=== PATIENT | male | born 1960 | race Caucasian/White ===

== ENCOUNTER 2020-05-12 08:28 | Day surgery (SDC) | payer OTHER ==
[~2020-05-12] VITALS: Ht 175.3 cm; Wt 99.3 kg
[~2020-05-12 08:28] MED LIST: BUSPIRONE HCL10 MG PO; CIALIS2.5 MG; OMEPRAZOLE20 M1 PO; WELLBUTRIN SR100 MG PO
[2020-05-12] MEDS ORDERED: ADDERALL 10 MG10 MG PO (09:00)
--- NOTE | 2020-05-12 11:24 | NUR ---
05/12/20 [address] [place] RESPONDS TO VOICE ON ENTRY TO PACU. REORIENTED TO TIME AND SITUATION. DENIES PAIN OR NAUSEA. PASSING GAS
--- NOTE | 2020-05-13 07:32 | OR ---
[facility] [address] [place], [place] [address] Signed DATE OF OPERATION: 05/12/2020 SURGEON: Shikha Roach MD PREOPERATIVE DIAGNOSES: 1. Screening. 2. Paternal grandfather with colon cancer versus gastric cancer. 3. Negative colonoscopy 2009 (Dr. Osullivan). POSTOPERATIVE DIAGNOSES: 1. 4 mm polyp at 25 cm. 2. 5 mm polyp at 35 cm. 3. 3 mm polyp at base of cecum. 4. 4 mm polyp at 30 cm. 5. 3 mm polyp at 18 cm (rectum). 6. Minimal internal and external hemorrhoids. PROCEDURE: Colonoscopy with hot biopsy. ESTIMATED BLOOD LOSS: None. INDICATIONS: Jori is a 60-year-old gentleman, asked to see me for a followup colonoscopy. He had a negative colonoscopy back in [address] Osullivan. He was age 50 at that time. He is not sure if his paternal grandfather had colon cancer versus gastric cancer. No one else in the family seems to have colon cancer or polyps. He has no lower GI complaints. He reminded me that I helped his girlfriend with her colonoscopy just a few months prior to his office visit. Consequently, Jori and his girlfriend are quite familiar with this whole process including our bowel prep. In the office, I gave Jori and his girlfriend another pamphlet on colonoscopy. He understands the nature of the test along with its risks including, but not limited to gas bloating, crampy abdominal pain, bleeding, perforation requiring surgery, and missed diagnosis. We also reviewed the written instructions for bowel prep line by line. We also reviewed the need for IV conscious sedation. He had expressed understanding and wished to proceed. PROCEDURE NOTE: Jori was taken into our endoscopy suite and placed in the left lateral decubitus position. He was given IV sedation with 6 mg of Versed and 100 mcg of fentanyl. A Electronically Signed By: SHIKHA ROACH MD 05/13/20 0732 PATIENT NAME: JORI COSTELLO OPERATIVE REPORT DATE OF : 60 REPORT #: [id number] PHYSICIAN: SHIKHA ROACH MD PCP: NO PRIMARY CARE PHYSICIAN REPORT IS CONFIDENTIAL AND NOT TO BE RELEASED WITHOUT AUTHORIZATION [facility] [address] [place], [place] [address] Signed digital rectal exam was performed and this revealed small external hemorrhoids. He had good sphincter tone. Prostate was unremarkable. The adult colonoscope was introduced and advanced under direct visualization of the camera into the cecum itself. His prep was good. We could easily see the appendiceal orifice and the ileocecal valve. The camera had been slowly withdrawn and pictures were taken throughout for photodocumentation. The above-mentioned polyps were all removed easily with the help of hot biopsy forceps. There was no diverticulosis. Once in the rectum, the scope had been retroflexed and we could see just a small internal hemorrhoid columns. After this, the gas was suctioned out and the colonoscope removed. Jori tolerated procedure quite well. RECOMMENDATIONS: I will see Jori back in my office in 7 to 14 days to review his results. Shikha Roach MD ALB/MODL /[id number] cc: Shikha Roach MD Copies: SHIKHA ROACH MD ~ Electronically Signed By: SHIKHA ROACH MD 05/13/20 0732 PATIENT NAME: JORI COSTELLO OPERATIVE REPORT DATE OF : 60 REPORT #: [id number] PHYSICIAN: SHIKHA ROACH MD PCP: NO PRIMARY CARE PHYSICIAN REPORT IS CONFIDENTIAL AND NOT TO BE RELEASED WITHOUT AUTHORIZATION
--- NOTE | 2020-05-13 15:51 | PATH ---
[facility] [address] [place], [place] [address] Signed SPECIMEN(S): A COLON POLYP AT 25 CM SPECIMEN(S): B COLON POLYP AT 35 CM SPECIMEN(S): C CECUM POLYP SPECIMEN(S): D COLON POLYP AT 30 CM SPECIMEN(S): E COLON POLYP AT 18 CM SPECIMEN SOURCE: A. COLON POLYP AT 25 CM B. COLON POLYP AT 35 CM C. CECUM POLYP D. COLON POLYP AT 30 CM E. COLON POLYP AT 18 CM CLINICAL HISTORY: Screening colonoscopy / external hemorrhoids; colon and rectal polyps. MICROSCOPIC DESCRIPTION: Histologic sections of all submitted blocks are examined by light microscopy. These findings, together with the gross examination, support the pathologic diagnosis. FINAL PATHOLOGIC DIAGNOSIS: A. Colon, polyp at 25 cm, polypectomy: - Hyperplastic polyp. - Negative for dysplasia or malignancy. B. Colon, polyp at 35 cm, polypectomy: - Fragments of tubular adenoma. - Negative for high-grade dysplasia or malignancy. C. Colon, cecum, polyp, polypectomy: - Fragments of tubular adenoma. - Negative for high-grade dysplasia or malignancy. D. Colon, polyp at 30 cm, polypectomy: - Fragments of tubular adenoma. - Negative for high-grade dysplasia or malignancy. E. Colon, polyp at 18 cm, polypectomy: - Colonic mucosa with no histopathologic abnormality. - Negative for dysplasia or malignancy. COMMENT: Regarding specimen E: Multiple additional deeper levels were examined. NAL:cml:C2NR PATIENT NAME: GUZMAN COSTELLO [facility]ON[place] PATHOLOGY DATE OF : 60 REPORT #: [id number] PHYSICIAN: NICK RUBIN PCP: NO PRIMARY CARE PHYSICIAN REPORT IS CONFIDENTIAL AND NOT TO BE RELEASED WITHOUT AUTHORIZATION [facility] [address] [place], [place] [address] Signed GROSS DESCRIPTION: Five specimens are received in five containers labeled with "SG". A. The specimen, labeled "SG, polyp at 25," is received in formalin and consists of one fragment of pink-lisa tissue (0.4 x 0.3 x 0.2 cm). The specimen is submitted entirely in cassette (A1). B. The specimen, labeled "SG, polyp at 35," is received in formalin and consists of two fragments of pink-lisa tissue (0.4 x 0.4 x 0.2 cm in aggregate). The specimen is submitted entirely in cassette (B1). C. The specimen, labeled "SG," and designated on the requisition "cecum polypectomy," is received in formalin and consists of multiple fragments of pink-lisa tissue (0.6 x 0.2 x 0.1 cm in aggregate). The specimen is submitted entirely in cassette (C1). D. The specimen, labeled "SG," and designated on the requisition "colon polypectomy at 30 cm," is received in formalin and consists of two fragments of pink-lisa tissue (0.5 x 0.2 x 0.2 cm in aggregate). The specimen is submitted entirely in cassette (D1). E. The specimen, labeled "SG, polyp at 18 cm," is received in formalin and consists of one fragment of pink-lisa tissue (0.2 x 0.2 x 0.1 cm in aggregate). The specimen is submitted entirely in cassette (E1). AC (under the direct supervision of a pathologist The Gross Description was prepared using a voice recognition system. The report was reviewed for accuracy; however, sound-alike word errors, addition and/or deletions may occur. If there is any question about this report, please contact Client Services. PERFORMING LABORATORY: The technical component was performed by [facility], [address] [place] [id number] (Teller Coordinator: Hetal Miner MD; CLIA# [id number]). Professional interpretation was performed by [facility], [address] [place], [place] [address] (CLIA# [id number]). Diagnostician: Ann Gutierrez MD Pathologist Electronically Signed 05/13/2020 Copies: PATIENT NAME: GUZMAN COSTELLO PATHOLOGY DATE OF : 60 REPORT #: [id number] PHYSICIAN: NICK PATHOLOGY PCP: NO PRIMARY CARE PHYSICIAN REPORT IS CONFIDENTIAL AND NOT TO BE RELEASED WITHOUT AUTHORIZATION [facility] [address] [facility] [place], [place] [address] Signed ~ PATIENT NAME: GUZMAN COSTELLO PATHOLOGY DATE OF : 60 REPORT #: [id number] PHYSICIAN: NICK RUBIN PCP: NO PRIMARY CARE PHYSICIAN REPORT IS CONFIDENTIAL AND NOT TO BE RELEASED WITHOUT AUTHORIZATION
== END 2020-05-12 11:39 | disposition home or self-care (01) ==
LOC: OPS 08:28 → DS 08:28 → OPS 09:45
PROVIDERS: ATTEND Colon & Rectal Surgery
PROC: 0DBH8ZX Excision of Cecum, Via Natural or Artificial Opening Endoscopic, Diagnostic (ICD-10-PCS; principal; 2020-05-12 09:45)
DX: K63.5 Polyp of colon (principal); K21.9 Gastro-esophageal reflux disease without esophagitis
CPT/HCPCS: J2250; J3010; J7121